=== PATIENT | female | born 1965 ===

== ENCOUNTER 2022-05-25 11:09 | Day surgery (SDC) | payer MEDICARE, SELFPAY ==
--- NOTE | 2022-05-25 07:33 | W.ANESPRE ---
General Info Date of Service Date Performed: 05/25/22 Height: 5 ft 3 in Weight: 74.843 kg Body Mass Index (BMI): 29.2 Surgical Procedure: Operation Date: 05/25/22 14:40 Proposed Procedure Side Surgeon p Cataract Extraction with IOL Implant Left Howard Osman MD Meds Allergies and Home Medications Allergies Allergy/AdvReac Type Severity Reaction Status Date / Time bacitracin Allergy Intermediate Other (See Unverified 05/25/22 12:18 Comment) citalopram [From Celexa] Allergy Intermediate Other (See Unverified 05/25/22 12:18 Comment) codeine Allergy Intermediate Unverified 05/25/22 12:18 enalapril Allergy Intermediate Unverified 05/25/22 12:18 fexofenadine Allergy Intermediate Unverified 05/25/22 12:18 latex Allergy Intermediate Unverified 05/25/22 12:18 meloxicam Allergy Intermediate Unverified 05/25/22 12:18 naproxen [From Naprosyn] Allergy Intermediate Unverified 05/25/22 12:18 paroxetine [From Paxil] Allergy Intermediate Unverified 05/25/22 12:18 Rabbit Allergy Intermediate Unverified 05/25/22 12:18 hydrochlorothiazide Allergy Mild Unverified 05/25/22 12:18 insulin detemir Allergy Mild Unverified 05/25/22 12:18 insulin lispro Allergy Mild Unverified 05/25/22 12:18 mold Allergy Mild Unverified 05/25/22 12:18 ragweed pollen Allergy Mild Unverified 05/25/22 12:18 weed pollen Allergy Mild Unverified 05/25/22 12:18 atorvastatin [From Lipitor] AdvReac Severe Verified 05/25/22 12:18 aspergillus Allergy Severe Uncoded 05/25/22 12:18 cats Allergy Intermediate Uncoded 05/25/22 12:18 cockroaches Allergy Mild Uncoded 05/25/22 12:18 grass Allergy Mild Uncoded 05/25/22 12:18 Castañeda's quarters W10 Allergy Mild Uncoded 05/25/22 12:18 trees Allergy Mild Uncoded 05/25/22 12:18 [place] w18 Allergy Mild Uncoded 05/25/22 12:18 Home Medication Medication Instructions Recorded acyclovir 5 % topical ointment 1 applic topical DIRECTED 05/22/22 (Zovirax) albuterol sulfate 2.5 mg/3 mL 2.5 mg inhalation Q4H PRN 05/22/22 (0.083 %) solution for nebulization albuterol sulfate 90 mcg/actuation 2 puff inhalation HS PRN 05/22/22 aerosol inhaler (Proventil HFA) amlodipine 5 mg tablet 5 mg PO DAILY 05/22/22 apixaban 2.5 mg tablet (Eliquis) 2.5 mg PO BID 05/22/22 benzonatate 100 mg capsule 100 mg PO TID PRN 05/22/22 budesonide-formoterol HFA 160 2 puff inhalation BID PRN 05/22/22 mcg-4.5 mcg/actuation aerosol inhaler (Symbicort) buspirone 10 mg tablet 10 mg PO BID PRN 05/22/22 cyclobenzaprine 10 mg tablet 10 mg PO HS PRN 05/22/22 desonide 0.05 % topical cream 1 applic topical TID PRN 05/22/22 dexlansoprazole 60 mg 60 mg PO BID 05/22/22 capsule,biphase delayed release (Dexilant) diazepam 5 mg tablet 5 mg PO TID PRN 05/22/22 docusate sodium 100 mg capsule 100 mg PO DIRECTED 05/22/22 duloxetine 40 mg capsule,delayed 40 mg PO BID 05/22/22 release epinephrine 0.3 mg/0.3 mL 0.3 mg IM DIRECTED 05/22/22 injection, auto-injector ergocalciferol (vitamin D2) 1,250 1,250 mcg PO DIRECTED 05/22/22 mcg (50,000 unit) capsule (Vitamin D2) estradiol 0.01% (0.1 mg/gram) 2 g vaginal DIRECTED 05/22/22 vaginal cream (Estrace) evolocumab 140 mg/mL subcutaneous 140 mg subcut DIRECTED 05/22/22 syringe (Repatha Syringe) ezetimibe 10 mg tablet (Zetia) 10 mg PO HS 05/22/22 fremanezumab-vfrm 225 mg/1.5 mL 225 mg subcut DIRECTED 05/22/22 subcutaneous syringe (Ajovy Syringe) gabapentin 600 mg tablet 600 mg PO HS 05/22/22 galcanezumab-gnlm 120 mg/mL 240 mg subcut DIRECTED 05/22/22 subcutaneous pen injector (Emgality Pen) ibuprofen 800 mg tablet 800 mg PO TID PRN 05/22/22 insulin aspart U-100 100 unit/mL 12 - 30 sliding scale dose subcut 05/22/22 (3 mL) subcutaneous pen (Novolog DIRECTED Flexpen U-100 Insulin aspart) insulin glargine U-300 conc 300 57 unit subcut HS 05/22/22 unit/mL (1.5 mL) subcutaneous pen (Toujeo SoloStar U-300 Insulin) ipratropium bromide 0.02 % 1 05/22/22 solution for inhalation ketorolac 60 mg/2 mL intramuscular 60 mg IM DIRECTED 05/22/22 syringe lidocaine 5 % topical patch 1 patch topical Q12H PRN 05/22/22 (Lidoderm) loratadine 10 mg tablet 10 mg PO HS 05/22/22 metformin 500 mg tablet,extended 500 mg PO DAILY 05/22/22 release 24 hr mirabegron 50 mg tablet,extended 50 mg PO QAM 05/22/22 release 24 hr (Myrbetriq) mometasone 50 mcg/actuation nasal 2 spray intranasal BID 05/22/22 spray montelukast 10 mg tablet 10 mg PO HS 05/22/22 (Singulair) olopatadine 0.1 % eye drops 2 drp ophthalmic (eye) BID 05/22/22 ondansetron HCl 4 mg tablet 4 mg PO Q6H PRN 05/22/22 promethazine 25 mg tablet 25 mg PO QID PRN 05/22/22 sitagliptin 100 mg tablet (Januvia) 100 mg PO DAILY 05/22/22 sitagliptin 100 mg tablet (Januvia) 100 mg PO DAILY 05/22/22 topiramate 100 mg tablet (Topamax) 200 mg PO BID 05/22/22 trazodone 50 mg tablet 50 mg PO HS 05/22/22 ubrogepant 50 mg tablet 50 mg PO DIRECTED 05/22/22 valacyclovir 1 gram tablet 1,000 mg PO TID PRN 05/22/22 Current Visit Medications: Current Medications Generic Name Dose Route Start Last Admin Trade Name Freq PRN Reason Stop Dose Admin Acetaminophen 1,000 mg 05/25/22 06:00 Acetaminophen 500 Mg Tab PO Q4H PRN PRN Miscellaneous Medication 0 ml 05/25/22 06:00 Prednisolone 1%, Moxifloxacin 0.5%, Nepafenac 0.1% 5ml Btl OS DIRECTED [facility] Miscellaneous Medication 0 ml 05/25/22 06:00 Tropicam./Phenyleph. (1/2.5%) 5 Ml Btl OS DIRECTED [facility] Tetracaine HCl 0 ml 05/25/22 06:00 Tetracaine 0.5% 4 Ml Btl OS DIRECTED [facility] PFSH Medical History Medical History Abdominal pain of unknown etiology Allergic rhinitis CAD (coronary artery disease) non-obstructive per [facility] note Carpal tunnel syndrome Cataract Chronic maxillary sinusitis Chronic right hip pain Chronic right lower quadrant pain Deviated nasal septum Diabetes Dysuria Greater trochanteric bursitis History of bladder cancer HLD (hyperlipidemia) Lumbar back pain with radiculopathy affecting right lower extremity Major depressive disorder Mild persistent asthma Polypharmacy Primary osteoarthritis Psychogenic nonepileptic seizure 1 month since last seizure, pt. states she passes out when she gets overwhelmed, f/u with neurology Dr. Cole @ [facility] March 04 Pulmonary embolism 10/23/20 Sensorineural hearing loss (SNHL) of both ears TMJ (temporomandibular joint disorder) Surgical History Surgical History (Updated 05/25/22 @ 12:28 by Nichelle Jones) H/O right knee surgery History of cochlear implant History of gynecologic surgery Ovarian surgery per H&P note History of tubal ligation History of urologic surgery Bladder sling per H&P Hx of amputation 1. Right second toe 2. L great toe 12/2018 3.L 2nd toe 04/2021 Hx of appendectomy Hx of cholecystectomy Hx of knee surgery Tobacco Smoking/Tobacco Use Status: Never Alcohol Alcohol Intake: current Alcohol intake frequency: a few times a month Substance Use Substance use: Never Substance use type: does not use Vital Signs and Lab Results Lab Results Blood Type / Crossmatch: No Data to Display Complete Blood Count: No Data to Display Complete Metabolic Panel: No Data to Display Liver Function Panel: No Data to Display Coagulation Panel: No Data to Display Cardiac Panel: No Data to Display Arterial Blood Gas: No Data to Display Venous Blood Gas: No Data to Display Pancreas Panel: No Data to Display Thyroid Panel: No Data to Display Infectious Disease: No Data to Display Blood Cultures: No Data to Display Toxicology Panel: No Data to Display Imaging and Studies Imaging and Studies Study information below may be from another EMR and interpreted by another provider. Please see original notes in EMR for more complete details. Echocardiogram Summary: Normal stress ECHO at [facility] in 2020. Patient with EF of 65%, trace MR, and trace TR. Scanned into record Anesthesia Assessment and Plan Anesthesia History Personal History: No History of Anesthesia Complications Family History: No Family History of Anesthesia Complications Exercise Tolerance Exercise Tolerance: Metabolic Equivalents<4 Pertinent Negatives Pertinent Negatives: No Symptoms of GERD, No Major Cardiovascular Symptoms or Complaints, No Major Pulmonary Symptoms or Complaints and Other (Hx of psychogenic seizures) Cardiac & Pulmonary Exam Cardiac Exam: Normal S1/S2 Heart Sounds Pulmonary Exam: Clear Bilateral Breath Sounds and Active Dry Cough Cardiac and Pulmonary Comment:: States she has an active dry cough due to humidity Implantable Cardiac Device Does patient have a Pacemaker or an ICD?: No Airway Exam Known Difficult Airway: No Mallampati Class: 2 Mouth Opening: Normal (> 3cm) Thyromental Distance: Greater than 3 cm Neck Range of Motion: Full ROM Neck Circumference: Normal Teeth Condition: Normal Dentition ASA Classification ASA Score: ASA 3 Emergency Case?: No NPO Status NPO Status: NPO Clears >2 hours, Solids >8 hours Anesthesia Plan Resuscitation Status: Full Code Anesthesia Technique: MAC Anesthesia Airway Planned: Natural Airway Monitors Used: Standard Monitors Preoperative Comments:: psychogenic seizures: being followed at [facility] by neurology. TIA like symptoms with seizures in past but not diagnosed, currently no signs or symptoms. HX PEs, persistent asthma.
[2022-05-25 11:41] VITALS: BP 154/95; PULSE 87; RESP 17; TEMP 36.3; O2SAT 95
[2022-05-25] MEDS: Tropicam./Phenyleph. (1/2.5%) 5 ML BTL OS ×3 (12:18→12:33)
[2022-05-25 12:28] VITALS: BMI 29.2
[2022-05-25] MEDS: Lactated Ringers 1,000 ML 30 ML IV (12:45)
[2022-05-25] MEDS: Tetracaine 0.5% 4 ML BTL OS (13:00)
[2022-05-25] MEDS: Povidone-Iodine Ophth 30 ML BTL (13:02)
[2022-05-25] MEDS: Lidocaine 2% Jelly 6 ML SYR (13:04)
[2022-05-25] MEDS: Balanced Salt Soln.-PLUS 500 ML BAG (13:05)
[2022-05-25] MEDS: Duovisc Viscoelastic System EACH 1 EACH (13:05)
[2022-05-25 13:31] VITALS: BP 128/78; PULSE 91; RESP 16; TEMP 36.5; O2SAT 97
--- NOTE | 2022-05-25 13:35 | W.PM.OP ---
Date of service: 05/25/22 Time of Service: 13:35 Operative Note Operative Note DATE OF PROCEDURE: 05/25/22 PRE-OP DIAGNOSIS: Nuclear/posterior subcapsular cataract, left eye POST-OP DIAGNOSIS: same PROCEDURE: Cataract extraction using phacoemulsification with intraocular lens implant, left eye SURGEON: Howard Osman ANESTHESIA TYPE: Local By Surgeon and MAC Refer to Anesthesia Record PATHOLOGY: none sent COMPLICATIONS: None Patient was transported to: same day Patient's condition: stable Implants: Jaydon [employer] Jaydon / [employer] Tecnis [id number] Indications: Progressive decreased vision due to cataract, left eye Procedure Description: CATARACT SURGERY OPERATIVE REPORT PREOPERATIVE DIAGNOSIS: 1. Nuclear/posterior subcapsular cataract, left eye POSTOPERATIVE DIAGNOSIS: Same OPERATION: 1. Cataract extraction using phacoemulsification with posterior chamber intraocular lens implant, left eye. IOL: IOL Clearance Diver/Model: Jaydon & Jaydon / MICHAEL Tecnis [id number] IOL Power: + 22.0 diopters IOL Serial Number: [id number] Optic Diameter: 6.0 mm Haptic/Overall Diameter: 13.0 mm PHACO INFO: Luis Miguel Go Kin Packsurion Vision System with OZil and Active Fluidics Cumulative Dispersed Energy (CDE): 6.38 seconds SURGEON: Howard Osman MD, ERIN ANESTHESIA: Monitored [facility] (MAC), with local sub-tenon's anesthetic infiltration COMPLICATIONS: None SPECIMENS: None INDICATIONS FOR PROCEDURE: Patient is a 57-year-old lady who was previously undergone cataract surgery in her right elsewhere. She has now developed a significant nuclear/posterior subcapsular cataract in the left eye and desires cataract surgery there and attempt to improve and maximize her vision. PROCEDURE: The correct surgical eye was identified and marked as the left eye and the pupil was dilated in the preoperative area using mydriatics and cycloplegics. The dilated pupil size was 7.0 mm. She received IV sedation with Versed 1mg. The patient was brought to the operating room where cardiopulmonary monitoring was instituted and surgical time-out was performed, confirming the correct operative eye and IOL power. Topical anesthesia was administered and ophthalmic povidone-iodine 5% was instilled into the conjunctival fornices. Lidocaine gel was applied to the cornea and the fidelina-ocular area was prepped with Betadine 10% solution and draped in the usual sterile fashion for intraocular surgery, including an aperture drape. A Tegaderm transparent film dressing was cut in half and used to cover the lashes and lid margins. Care was taken to sequester the lashes and lid margins under the Tegaderm dressing. A lid speculum was placed between the lids of the operative eye and the Luis Miguel Lux[employer] Revalia operating microscope was maneuvered into position. Baron scissors were then used to make a conjunctival buttonhole approximately 6mm posterior to the limbus in the inferonasal quadrant. Blunt dissection was carried out to expose bare sclera, and a blunt-tipped sub-tenon?s anesthesia cannula was introduced and passed posteriorly along the globe where non-preserved plain lidocaine was injected into posterior sub-Tenon?s space. A sideport knife was used to make a paracentesis port superiorly/superiortemporally. Intraocular phenylephrine/lidocaine was injected int the anterior chamber.. The anterior chamber was filled with viscoelastic. A keratome knife was used to construct a 2-plane near-clear corneal tunnel extending 2.0mm into clear cornea temporally. A flap was raised on the anterior capsule and capsulorhexis forceps were used to complete a continuous curvilinear capsulorhexis of 5.0 mm. Balanced salt solution was then used to perform cortical cleaving hydrodissection and nuclear hydrodelineation until the lens could be freely rotated within the capsular bag. The lens nucleus was then disassembled and removed within the capsular bag and iris plane using phacoemulsification. Residual cortical material was removed using the 45-degree angled silicone I/A tip with 0.3mm port. The posterior capsule was carefully polished to remove as much residual lens epithelial cells as safely possible. The capsular bag was then inflated and the anterior chamber deepened with viscoelastic. The lens implant described above was inserted into the capsular bag using the MICHAEL Iliamna Injector. A Kuglen hook was used to dial the IOL into position. Residual viscoelastic was then removed first from posterior to the IOL, then from the anterior chamber using the I/A handpiece. The lens implant was noted to center nicely within the capsular bag. The incisions were stromally hydrated, and the anterior chamber was reformed using BSS. Then 0.5cc of moxifloxacin 1.0mg/ml were injected into the capsular bag and anterior chamber. The incisions were checked with a Weck spear and found to be secure. Several drops of ophthalmic povidone-iodine 5% were then applied to the eye followed by two drops of Imprimis combination prednisolone/moxifloxacin/nepafenac solution. The drapes were removed and a clear plastic protective eye shield was placed over the eye. The patient was then returned to Same Day Surgery in stable condition.
--- NOTE | 2022-05-25 13:36 | W.PM.DSUDISC ---
Discharge Plan Disposition Patient Disposition: HOME Condition: Good Discharge Details Attending Provider: Howard Osman Primary Care Provider: Lloyd Bowden Home Meds and New Rx's Prescriptions: No Action cyclobenzaprine 10 mg Tablet 10 mg PO HS PRN desonide 0.05 % Cream 1 applic TOPICAL TID PRN gabapentin 600 mg Tablet 600 mg PO HS albuterol sulfate 2.5 mg /3 mL (0.083 %) Solution For Nebulization 2.5 mg inhalation Q4H PRN trazodone 50 mg Tablet 50 mg PO HS ibuprofen 800 mg Tablet 800 mg PO TID PRN valacyclovir 1 gram Tablet 1,000 mg PO TID PRN ondansetron HCl [Zofran] 4 mg Tablet 4 mg PO Q6H PRN amlodipine 5 mg Tablet 5 mg PO DAILY benzonatate [Tessalon Perles] 100 mg Capsule 100 mg PO TID PRN acyclovir [Zovirax] 5 % Ointment 1 applic TOPICAL DIRECTED buspirone 10 mg Tablet 10 mg PO BID PRN olopatadine [Patanol] 0.1 % Drops 2 drp ophthalmic (eye) BID lidocaine [Lidoderm] 5 % Adhesive Patch,Medicated 1 patch topical Q12H PRN promethazine 25 mg Tablet 25 mg PO QID PRN docusate sodium 100 mg Capsule 100 mg PO DIRECTED mometasone [Nasonex] 50 mcg/actuation [place],Non-Aerosol 2 spray INTRANASAL BID montelukast [Singulair] 10 mg Tablet 10 mg PO HS ergocalciferol (vitamin D2) [Vitamin D2] 1,250 mcg (50,000 unit) Capsule 1,250 mcg PO DIRECTED epinephrine 0.3 mg/0.3 mL Auto-Injector 0.3 mg IM DIRECTED estradiol [Estrace] 0.01 % (0.1 mg/gram) Cream 2 g VAGINAL DIRECTED albuterol sulfate [Proventil HFA] 90 mcg/actuation Hfa Aerosol Inhaler 2 puff INHALATION HS PRN topiramate [Topamax] 100 mg Tablet 200 mg PO BID metformin 500 mg Tablet Extended Release 24 Hr 500 mg PO DAILY loratadine 10 mg Tablet 10 mg PO HS ipratropium bromide 0.02 % Solution 1 diazepam 5 mg Tablet 5 mg PO TID PRN ezetimibe [Zetia] 10 mg Tablet 10 mg PO HS insulin aspart U-100 [Novolog Flexpen U-100 Insulin] 100 unit/mL (3 mL) Insulin Pen 12 - 30 sliding scale dose SUBCUT DIRECTED ketorolac 60 mg/2 mL Syringe 60 mg IM DIRECTED Januvia 100 mg Tablet 100 mg PO DAILY budesonide-formoterol [Symbicort] 160-4.5 mcg/actuation Hfa Aerosol Inhaler 2 puff INHALATION BID PRN Myrbetriq 50 mg Tablet Extended Release 24 Hr 50 mg PO QAM Eliquis 2.5 mg Tablet 2.5 mg PO BID Toujeo SoloStar U-300 Insulin 300 unit/mL (1.5 mL) Insulin Pen 57 unit SUBCUT HS duloxetine 40 mg Capsule,Delayed Release(Dr/Ec) 40 mg PO BID Repatha Syringe 140 mg/mL Syringe 140 mg SUBCUT DIRECTED Emgality Pen 120 mg/mL Pen Injector 240 mg SUBCUT DIRECTED ubrogepant 50 mg Tablet 50 mg PO DIRECTED Januvia 100 mg Tablet 100 mg PO DAILY dexlansoprazole [Dexilant] 60 mg Capsule,Biphase Delayed Releas 60 mg PO BID Discharge Orders Discharge Orders: Discharge Order (Routine); Ordered 05/25/22 Ordered By: Howard Osman DS: Diagnosis Discharge Diagnosis (1) Nuclear sclerotic cataract of left eye: Status: Resolved (2) Posterior subcapsular age-related cataract of left eye: Status: Resolved
[2022-05-25 14:00] VITALS: BP 133/84; PULSE 87; RESP 16; TEMP 36.6; O2SAT 95
--- NOTE | 2022-05-25 14:18 | W.ANESPOSTOP ---
Postoperative Evaluation Date, Time and Location Date Performed: 05/25/22 Time Performed: 14:18 Patient Location: Day Surgery Unit Vital Signs Most Recent Imported Vital Signs: Most Recent Vital Signs Temp Pulse Resp BP Pulse Ox 36.6 C 87 16 133/84 95 05/25/22 14:00 05/25/22 14:00 05/25/22 14:00 05/25/22 14:00 05/25/22 14:00 Pain Score Most Recent Pain Score: Most Recent Pain Score Pain Level 0 05/25/22 14:00 Assessment Mental Status: Awake (Alert & Oriented to Patient Baseline) Airway and Respiratory Function: Patent airway with normal (patient baseline) respiratory exam Cardiovascular Function: Hemodynamically Stable Hydration Status: Adequately Hydrated Nausea & Vomiting: No Nausea or Vomiting Pain: Pt. Denies Any Pain Peripheral Nerve Block: Patient did not receive a nerve block Postoperative Comments:: Pt says she is happy (with her care)
--- NOTE | 2022-05-25 14:27 | W.ANESPOSTOP ---
Postoperative Evaluation Date, Time and Location Date Performed: 05/25/22 Time Performed: 14:27 Patient Location: Day Surgery Unit Vital Signs Most Recent Imported Vital Signs: Most Recent Vital Signs Temp Pulse Resp BP Pulse Ox 36.6 C 87 16 133/84 95 05/25/22 14:00 05/25/22 14:00 05/25/22 14:00 05/25/22 14:00 05/25/22 14:00 Most Recent Vital Signs Temp Pulse Resp BP Pulse Ox 36.6 C 87 16 133/84 95 05/25/22 14:00 05/25/22 14:00 05/25/22 14:00 05/25/22 14:00 05/25/22 14:00 Pain Score Most Recent Pain Score: Most Recent Pain Score Pain Level 0 05/25/22 14:00 Assessment Mental Status: Awake (Alert & Oriented to Patient Baseline) Airway and Respiratory Function: Patent airway with normal (patient baseline) respiratory exam Cardiovascular Function: Hemodynamically Stable Hydration Status: Adequately Hydrated Nausea & Vomiting: No Nausea or Vomiting Pain: Pt. Denies Any Pain Peripheral Nerve Block: Patient did not receive a nerve block
== END 2022-05-25 14:24 | disposition home or self-care (01) ==
PROVIDERS: PCP Family Medicine; Visit Provider Ophthalmology
PROC: (CPT 66984; principal; 2022-05-25 14:30)
DX: H25.042 Posterior subcapsular polar age-related cataract, left eye (principal); I25.10 Atherosclerotic heart disease of native coronary artery without angina pectoris; Z79.01 Long term (current) use of anticoagulants; Z86.711 Personal history of pulmonary embolism
CPT/HCPCS: 66984; V2632; J1885; J2250; J2405